=== PATIENT | female | born 1975 | race Caucasian/White ===

== ENCOUNTER 2019-12-05 04:20 | Emergency (ER) | payer OTHER, SELFPAY ==
--- NOTE | ~2019-12-05 | CT_ITS ---
EXAMINATION: CT abdomen pelvis w con DATE: 12/05/2019 05:32 INDICATION: Lower abdominal pain and fever TECHNIQUE: Computed tomography (CT) of the abdomen and pelvis was performed with 100 mL Omnipaque-350 intravenous contrast. Automated exposure control and iterative reconstruction technique were employe d. The dose-length product was 414.24 mGy-cm. COMPARISON: 04/25/2014 FINDINGS: Minimal dependent atelectasis in the bilateral lower lobes. Heart size is normal. No pericardial or p leural effusion. Liver, gallbladder, spleen, pancreas, bilateral adrenal glands and right kidney are normal. 4 mm low-attenuation likely cyst in the left kidney which is too small to definitively charac terize. There is urothelial enhancement at the left renal pelvis and proximal left ureter suspicious for ascending urinary tract infection. Prominent diffuse wall thickening at the bladder suspicious fo r cystitis. IUD in expected position within the retroflexed uterus. There is a heterogeneous appearan ce to the myometrium and endometrial complex at uterine fundus. 2.2 cm cyst/follicle at the left ovar y. Right adnexa is unremarkable. Bowels including the appendix are normal. Small amount of ascites in the cul-de-sac which could be reactive or physiologic. No abscess or free intraperitoneal gas. Sever e disc height loss at L5-S1. Mild spondylosis in the more cephalad lumbar and lower thoracic spine. IMPRESSION: 1. Findings suggestive of cystitis and likely ascending urinary tract infection with left ureteritis/ pyelitis. Correlate with urinalysis. 2. IUD in expected position with heterogeneous appearance to the surrounding endometrium/myometrium s uggesting most likely either fibroids or adenomyosis. Consider pelvic ultrasound for further evaluati on. Reviewed, dictated and finalized at location A. IMPRESSION: 1. Findings suggestive of cystitis and likely ascending urinary tract infection with left ureteritis/pyelitis. Correlate with urinalysis. 2. IUD in expected position with heterogeneous appearance to the surrounding en dometrium/myometrium suggesting most likely either fibroids or adenomyosis. Con health screener pelvic ultrasound for further evaluation.
[2019-12-05 04:24] VITALS: BP 107/38; PULSE 117; RESP 18; TEMP 37.9; O2SAT 98
--- NOTE | 2019-12-05 04:33 | ED.FEVER ---
HPI - Fever General Chief Complaint: Fever Stated Complaint: abd pain,constipation,back pain,fever Time Seen by Provider: 12/05/19 04:31 History of Present Illness HPI Narrative: She reports mild abdominal discomfort for a few days which she believed was due to constipation. She does continue to have bowel movements, just less and she feels like she has to try harder. The abdominal discomfort feels like cramping. This morning this turned into severe lower abdominal pain. Radiating to the low back. Associated with fever and nausea. No dysuria, hematuria. She had a similar episode a few years ago and she is not clear on what the diagnosis was. On review of the chart it appears that it was a nonspecific colitis. Related Data Allergies Allergy/AdvReac Type Severity Reaction Status Date / Time No Known Allergies Allergy Verified 04/25/14 01:36 Review of Systems Review of Systems: All systems reviewed & are unremarkable except as noted in HPI and below Constitutional: Constitutional: Reports fever(s) ENT: Denies sore throat Cardiovascular: Cardiovascular: Denies chest pain Respiratory: Respiratory: Denies cough and Denies dyspnea Gastrointestinal: Gastrointestinal: Reports abdominal pain, Reports bloating, Reports constipation and Reports nausea Genitourinary: Genitourinary: Denies hematuria and Denies dysuria Musculoskeletal: Musculoskeletal: Reports back pain and Reports myalgias Neurologic: Denies dizziness and Denies weakness [facility] Social History Social History Smoking status: Never smoker Alcohol intake: never Gender identity (if verbalized by the patient): Female Exam Const: General: healthy appearing, no acute distress and alert Orientation/consciousness: patient oriented x3 HENMT: Head: normal to inspection Neck: Neck: normal visual inspection and no lymphadenopathy Chest: Chest palpation & inspection: no tenderness Resp: Effort & Inspection: normal respiratory effort Auscultation: clear to auscultation bilaterally, no rales, no rhonchi and no wheezes Cardio: Jugular venous distension: no JVD Rate: regular rate Rhythm: regular rhythm Heart sounds: no murmurs GI: Inspection: non-distended GI Palp: Yes Soft to palpation, Yes Tenderness to palpation present (GI) (lower), No Guarding due to palpation present (GI) and No Rebound tenderness present Auscultation: normal bowel sounds Skin: General skin exam: normal color Neuro: General: patient oriented x3 and moves all extremities Speech: normal speech Extrem: General: no edema Psych: Appearance: well kempt Affect: Anxious affect present (restless) Course Vital Signs Vital signs: Vital Signs Temperature 37.9 C H 12/05/19 04:24 Pulse Rate 117 H 12/05/19 04:24 Respiratory Rate 18 12/05/19 04:24 Blood Pressure 107/38 L 12/05/19 04:24 Pulse Oximetry 98 12/05/19 04:24 Temperature 37.6 C H 12/05/19 06:57 Pulse Rate 92 12/05/19 06:57 Respiratory Rate 16 12/05/19 06:57 Blood Pressure 102/69 12/05/19 06:57 Pulse Oximetry 100 12/05/19 06:57 MDM - Fever MDM Narrative Medical decision making narrative: CT and UA both consistent with ascending UTI. Vitals improved with fluids. Differential Diagnosis Differential diagnosis: Likely gastroenteritis, pyelonephritis, sepsis and other (colitis) Medical Records Attestation: I reviewed the patient's medical records. Lab Data Attestation: I reviewed the patient's lab results. Result diagrams: 12/05/19 04:48 12/05/19 04:48 Labs: Lab Results 12/05/19 12/05/19 12/05/19 Range/Units 04:48 04:48 04:48 WBC 7.2 (4.5-10.0) K/mm3 RBC 3.54 L (4.2-5.4) M/mm3 Hgb 11.3 L (12.0-15.0) g/dL Hct 33.3 L (37.0-47.0) % MCV 94.1 (80-100) fl MCH 31.9 (26-34) pg MCHC 33.9 (32-36) g/dl RDW 12.2 (11.5-14.5) % Plt Count 163 (150-375) k/mm3 MPV 10.3 (
[2019-12-05] MEDS: SODIUM CHLORIDE 0.9% IV 1,000 ML 999 ML IV CONT (04:52)
[2019-12-05 04:57] LABS: Basophils Percent Auto 0.3 % (0.2-1.2); Eosinophils Absolute Auto 0.1 K/mm3 (0-0.3); Eosinophils Percent Auto 0.7 % (0-4.4); Hematocrit 33.3 % (37.0-47.0); Hemoglobin 11.3 g/dL (12.0-15.0); Immature Granulocyte Absolute 0.01 K/mm3 (0.00-0.031); Immature Granulocyte Percent A 0.1 % (0-0.5); Lymphocytes Absolute Auto 0.56 K/mm3 (0.9-3.2); Lymphocytes Percent Auto 7.8 % (18.3-44.2); Mean Corpuscular HGB Conc 33.9 g/dl (32-36); Mean Corpuscular Hemoglobin 31.9 pg (26-34); Mean Corpuscular Volume 94.1 fl (80-100); Mean Platelet Volume 10.3 fl (7.4-10.4); Monocytes Absolute Auto 0.1 K/mm3 (0.1-0.6); Monocytes Percent Auto 0.7 % (2.6-8.5); Neutrophils Absolute Auto 6.5 K/mm3 (1.3-6.7); Neutrophils Percent Auto 90.4 % (45.5-73.1); Platelet Count Result 163 k/mm3 (150-375); Red Blood Count 3.54 M/mm3 (4.2-5.4); Red Cell Distribution Width 12.2 % (11.5-14.5); White Blood Count 7.2 K/mm3 (4.5-10.0)
[2019-12-05 05:05] LABS: Add Urine Microscopic? YES; Appearance Urine Cloudy (Clear); Bacteria Urine Trace /hpf; Bilirubin Urine Negative (Negative); Blood Urine 1+ (Negative); Color Urine Yellow (Yellow); Glucose Urine UA Negative (Negative); Ketones Urine Negative (Negative); Leukocyte Esterase Ur 1+ LEU/UL (Negative); Nitrate Urine Negative (Negative); Protein Urine 1+ mg/dL (Negative); RBC Urine 21-50 /hpf (0-2); Specific Grav Ur 1.018 (1.001-1.035); Squamous Epithelial Cell Urine Many /hpf (Few); Urobilinogen Urine Negative mg/dL (<2.0); WBC Urine 31-50 /hpf
[2019-12-05 05:08] LABS: Lactic Acid Reflex 0.7 mmol/L (0.7-2.1)
[2019-12-05 05:11] LABS: Alanine Aminotransferase 18 U/L (4-35); Albumin Level 3.8 g/dL (3.5-5.1); Alkaline Phosphatase 47 U/L (38-126); Anion Gap 9 mmol/L (8-16); Aspartate Amino Transferase 27 U/L (14-36); Bilirubin,Total 0.7 mg/dL (0.2-1.3); Blood Urea Nitrogen 14 mg/dL (7-17); CRP < 0.5 mg/dL (<1.0); Calcium 8.7 mg/dL (8.4-10.2); Carbon Dioxide 23 mmol/L (22-30); Chloride 102 mmol/L (98-107); Estimated CRCL calculation 81 ml/min; Estimated Glomerular Filt Rate > 60; Glucose 112 mg/dL (65-105); Potassium 3.6 mmol/L (3.4-5.0); Sodium 134 mmol/L (137-145)
[2019-12-05 05:16] LABS: INR 1.1; Prothrombin Time 13.8 Seconds (11.1-14.7)
[2019-12-05 05:17] LABS: Partial Thromboplastin Time 25.6 SECONDS (22.3-36.8)
[2019-12-05 06:57] VITALS: BP 102/69; PULSE 92; RESP 16; TEMP 37.6; O2SAT 100
== END 2019-12-05 06:58 | disposition home or self-care (01) ==
PROVIDERS: Emergency Provider Emergency Medicine; PCP Physician Assistant
DX: N39.0 Urinary tract infection, site not specified (principal); Z97.5 Presence of (intrauterine) contraceptive device
CPT/HCPCS: 36415; 74177; 80053; 81001; 81025; 83605; 85025; 85610; 85730; 86140; 87040; 87077; 87086; 87088; 87186; 96361; 96365; 99284; J0696; J7030; Q9967